=== PATIENT | male | born 1990 | race Hispanic/Latino ===

== ENCOUNTER 2019-12-25 17:27 | Emergency (ER) | payer SELFPAY ==
[2019-12-25] MEDS ORDERED: Ketorolac Tromethamine 30 MG/ML VIAL ONE (19:05)
[2019-12-25] MEDS ORDERED: Metoclopramide HCl 10 MG/2 ML VIAL ONE (19:05)
[2019-12-25] MEDS ORDERED: diphenhydrAMINE 50 MG/ML VIAL ONE (19:05)
[2019-12-25] MEDS ORDERED: Bupivacaine 0.5% 10 ML VIAL ONE (19:12)
== END 2019-12-25 19:53 | disposition home or self-care (01) ==
LOC: ERS 17:27
DX: G43.909 Migraine, unspecified, not intractable, without status migrainosus (principal); Z87.891 Personal history of nicotine dependence
CPT/HCPCS: 96365; 96375; J1200; J1885; J2765; J3490

== ENCOUNTER 2022-05-04 00:52 | Emergency (ER) | payer SELFPAY | END 2022-05-04 04:45 | LOC: ERS 00:52 | DX: S06.0X9A Concussion with loss of consciousness of unspecified duration, initial encounter (principal); S80.12XA Contusion of left lower leg, initial encounter; Z87.891 Personal history of nicotine dependence; V89.2XXA Person injured in unspecified motor-vehicle accident, traffic, initial encounter | CPT/HCPCS: 70450 ==